=== PATIENT | female | born 1940 | race Caucasian/White ===

== ENCOUNTER → 2018-04-23 | Outpatient (CLI) | payer MEDICARE, OTHER ==
[~2018-04-23] MED LIST: ASPI-1012 PO; ATOR40TA69 PO; CLOP75TA32 PO; DIGO125T87 PO; DIPH25TA18 PO; DOCU100T PO; FLUO20TA29 PO; LOPE2CAP PO; METO10TA3 PO; ONDA4TAB10 PO; PERM60CR4 TP; TRAM50TA4 PO; TRAZ-185 PO
== END | disposition home or self-care (01) ==
LOC: OIH 10:30
PROVIDERS: ATTEND Family Medicine
DX: R05 Cough (principal); M41.84 Other forms of scoliosis, thoracic region
CPT/HCPCS: 71046